=== PATIENT | female | born 1955 | race Caucasian/White ===

== ENCOUNTER → 2023-11-17 | Day surgery (SDC) | payer MEDICARE, OTHER ==
[~2023-11-17] MED LIST: ACETAMINOPHEN 1000 MG/100 ML IV ONE; BALANCED SALT SOLN (OPTH) 15 ML BTL IO ONE; DEXAMETHASONE SOD PHOS INJ 4 MG/ML SDV ONE; DEXMEDETOMIDINE HCL 200 MCG/2 ML VIAL ONE; DIPHENHYDRAMINE HCL INJ 50 MG/ML VIAL ONE; EYE LUBRICANT OPTH OINT 3.5GM TUBE OP ONE; FAMOTIDINE 20 MG/2 ML VIAL IV ONE; FENTANYL CITRATE/PF 100MCG/2 ML INJ ONE; LACTATED RINGER'S 1,000 ML BAG ONE; LACTATED RINGER'S 1,000 ML ONE; LIDOCAINE 1% W/EPINEPHRINE 20 ML VIAL ONE; LIDOCAINE HCL 2% LOCAL INJ 5 ML SDV VIAL INJ ONE; METOCLOPRAMIDE HCL 10 MG/2ML VIAL ONE; ONDANSETRON HCL INJ 2MG/ML 2ML 2 MG/ML VIAL ONE; PHENYLEPHRINE HCL 1% 10 MG/ML VIAL ONE; POVIDONE IODINE 5% (OPTH) 30 ML BTL ONE; PROPOFOL IV EMULSION 10 MG/ML 20 ML VIAL ONE; SCOPOLAMINE 1 MG PATCH ONE; SEVOFLURANE INHAL SOLN 250 ML PEN BTL ONE; SLEEP AID50 MG PO; VITAMIN D250 MCG PO
[2023-11-17] MEDS: LACTATED RINGER'S 1,000 ML BAG IV ONE (09:49)
[2023-11-17 13:23] VITALS: TEMP 98
[2023-11-17 14:35] VITALS: BP 144/79; PULSE 80; RESP 14; O2SAT 96
== END | disposition home or self-care (01) ==
LOC: OR 09:02
PROVIDERS: ATTEND Otolaryngology Otolaryngology/Facial Plastic Surgery
DX: S02.32XA Fracture of orbital floor, left side, initial encounter for closed fracture (principal); E66.01 Morbid (severe) obesity due to excess calories; W18.39XA Other fall on same level, initial encounter; Z88.6 Allergy status to analgesic agent; Z79.82 Long term (current) use of aspirin
CPT/HCPCS: 21386; 71046; 93005; J0131; J1100; J1200; J2001; J2371; J2405; J2704; J2765; J3010; J7121